=== PATIENT | female | born 1950 | race Caucasian/White ===

== ENCOUNTER 2025-03-23 09:38 | Outpatient (CLI) | payer MEDICARE, OTHER, SELFPAY ==
[2025-03-23 14:32] LABS: Abs Immature Grans 0.01 10^3/uL (0.0-0.06); HCT 44.9 % (36.0-46.0); HGB 14.3 g/dL (11.2-15.7); Immature Grans % 0.1 %; MCH 27.7 pg (27.0-33.0); MCHC 31.8 % (32.0-36.0); MCV 87 fL (80-95); MPV 11.2 fL (8.0-11.0); Platelet Count 239 10^3/uL (130-400); RBC 5.17 10^6/uL (3.93-5.22); RDW 13.1 % (11.7-14.6); RDW-SD 41.2 fL; WBC 7.73 10^3/uL (4.4-10.8)
[2025-03-23 15:15] LABS: Iron 84 ug/dL (50-170); Total Iron Binding Capacity 322 ug/dL (250-450)
[2025-03-23 15:44] LABS: ALT 23 U/L (14-59); AST 13 U/L (15-37); Albumin 3.7 g/dL (3.4-5.0); Alkaline Phosphatase 46 U/L (46-116); Anion Gap 6.0 mmol/L (3-11); BUN 19 mg/dL (7-18); Bilirubin, Total 0.5 mg/dL (0.2-1.0); CO2 32.0 mmol/L (21.0-32.0); Calcium 9.1 mg/dL (8.5-10.1); Calculated LDL 160 mg/dL (<100); Chloride 105 mmol/L (98-107); Cholesterol 244 mg/dL (<200); Estimated GFR 59.49 (mL/min/1.73m2); Ferritin 179 ng/mL (8-252); Glucose 98 mg/dL (74-106); HDL Cholesterol 67 mg/dL (>or=50); Potassium 4.7 mmol/L (3.5-5.1); Sodium 143 mmol/L (136-145); TSH (W/Ref FT4) 2.06 uIU/mL (0.36-3.74); Total Protein 7.0 g/dL (6.4-8.2); Triglyceride 89 mg/dL (<150); Vitamin B12 861 pg/mL (193-986)
[2025-03-23 16:49] LABS: Hemoglobin A1C 5.7 % (<5.7)
[2025-03-23 17:30] LABS: Bilirubin, Direct 0.1 mg/dL (0.0-0.2)
[2025-03-26 09:14] LABS: Transferrin 238 mg/dL (201-352)
== END 2025-03-23 09:39 | disposition home or self-care (01) ==
PROVIDERS: PCP Nurse Practitioner Family; Visit Provider Nurse Practitioner Family
DX: D50.9 Iron deficiency anemia, unspecified (principal); Z13.1 Encounter for screening for diabetes mellitus; Z13.6 Encounter for screening for cardiovascular disorders; E03.9 Hypothyroidism, unspecified
CPT/HCPCS: 36415; 80053; 80061; 80076; 82607; 82728; 83036; 83540; 83550; 84443; 84466; 85025